=== PATIENT | female | born 1990 | race Caucasian/White ===

== ENCOUNTER 2019-11-09 07:07 | Day surgery (SDC) | payer OTHER ==
[2019-11-05 11:01] VITALS: BMI 29.2
[~2019-11-09 07:07] MED LIST: LACTATED RINGERS 1,000 ML IV SCH; LIDOCAINE 1% 20 ML VIAL (10MG/ML) FOR IV START INTRADERMA PRN
[2019-11-09 07:22] VITALS: TEMP 97.2
[2019-11-09] MEDS ORDERED: PROPOFOL 10 MG/ML 20 ML VIAL IV ONE (07:43)
[2019-11-09] MEDS ORDERED: LIDOCAINE 1% INJ 10MG/ML (20 ML MDV) ONE (07:43)
--- NOTE | 2019-11-09 07:48 | P.GSHP ---
History of Present Illness H&P Date: 11/09/19 Chief Complaint: Dysphagia This a 21-year-old female who presents today for EGD. She's had issues with dysphagia. Past Medical History Additional Past Medical History / Comment(s): "lump in throat". neurocardiogenic syncope. has IUD History of Any Multi-Drug Resistant Organisms: None Reported Past Surgical History: Appendectomy, Cholecystectomy Additional Past Surgical History / Comment(s): septoplasty,exp.lap Past Anesthesia/Blood Transfusion Reactions: Previous Problems w/ Anesthesia Additional Past Anesthesia/Blood Transfusion Reaction / Comment(s): "hard to wake up" Past Psychological History: Anxiety Smoking Status: Never smoker Past Alcohol Use History: Occasional Past Drug Use History: None Reported - Past Family History Mother Family Medical History: No Reported History Medications and Allergies Home Medications Medication Instructions Recorded Confirmed Type Cholecalciferol [Vitamin D3 (25 1,000 unit PO DAILY 11/05/19 11/09/19 History Mcg = 1000 Iu)] Allergies Allergy/AdvReac Type Severity Reaction Status Date / Time tegaderm Allergy skin Uncoded 11/05/19 10:54 irritation Surgical - Exam Vital Signs Temp Pulse Resp BP Pulse Ox 97.2 F L 106 H 20 111/71 99 11/09/19 07:19 11/09/19 07:19 11/09/19 07:19 11/09/19 07:19 11/09/19 07:19 - General well developed, well nourished, no distress - Eyes PERRL - ENT normal pinna - Neck no masses - Respiratory normal expansion - Cardiovascular Rhythm: regular - Abdomen Abdomen: soft, non tender Assessment and Plan Assessment: Dysphagia. We'll perform EGD.
--- NOTE | 2019-11-09 07:54 | P.OP ---
Date of Procedure: 11/09/19 Preoperative Diagnosis: Dysphagia Postoperative Diagnosis: Antral gastritis Small hiatal hernia Mild esophagitis Procedure(s) Performed: EGD Anesthesia: MAC Surgeon: Kan Brown Pathology: other (Antrum, esophagus) Condition: stable Disposition: PACU Description of Procedure: The patient's placed on the endoscopy table in the lateral position. She received IV sedation. The gastroscope was oropharynx and passed in the esophagus and stomach. Scope then placed through the first. The first and s econd portion of the duodenum appeared normal. Scope was then brought back the antrum and this appeared mildly inflamed. A biopsies performed. Scope was retroflexed and the remainder stomach appeared normal. There was a small hiatal hernia seen. The GE junction was at 38 cm. The distal esophagus inflamed. The proximal esophagus appeared normal. Scope was withdrawn for patient.
[2019-11-09 07:59] VITALS: RESP 16
[2019-11-09 08:16] VITALS: BP 103/68; PULSE 74
== END 2019-11-09 08:30 | disposition home or self-care (01) ==
LOC: ORWHC2ENDO 07:07
PROVIDERS: ATTEND Surgery
DX: K29.50 Unspecified chronic gastritis without bleeding (principal); K20.0 Eosinophilic esophagitis; K44.9 Diaphragmatic hernia without obstruction or gangrene; F41.9 Anxiety disorder, unspecified; R55 Syncope and collapse; Z97.5 Presence of (intrauterine) contraceptive device; Z90.49 Acquired absence of other specified parts of digestive tract; Z88.8 Allergy status to other drugs, medicaments and biological substances; Z98.890 Other specified postprocedural states
CPT/HCPCS: 81025; 88305; 43239; J2001; J2704

== ENCOUNTER → 2019-11-30 | Outpatient (CLI) | payer OTHER ==
[2019-11-30 11:49] LABS: Basophils # (A) 0.1 k/uL (0-0.2); Basophils % (A) 1 %; Eosinophils # (A) 0.1 k/uL (0-0.7); Eosinophils % (A) 2 %; HCT 41.7 % (34.0-46.0); HGB 13.7 gm/dL (11.4-16.0); Lymphocytes # (A) 1.7 k/uL (1.0-4.8); Lymphocytes % (A) 34 %; MCH 30.3 pg (25.0-35.0); MCHC 32.8 g/dL (31.0-37.0); MCV 92.5 fL (80.0-100.0); Mean Platelet Volume 8.2; Monocytes # (A) 0.2 k/uL (0-1.0); Monocytes % (A) 4 %; Neutrophils # (A) 2.9 k/uL (1.3-7.7); Neutrophils % (A) 57 %; Platelet Count 260 k/uL (150-450); RBC 4.51 m/uL (3.80-5.40); RDW 11.9 % (11.5-15.5); WBC 5.1 k/uL (3.8-10.6)
== END | disposition home or self-care (01) ==
LOC: LABPAT 10:16
PROVIDERS: ATTEND Surgery
DX: Z01.812 Encounter for preprocedural laboratory examination (principal); K21.0 Gastro-esophageal reflux disease with esophagitis; D64.9 Anemia, unspecified; F17.200 Nicotine dependence, unspecified, uncomplicated
CPT/HCPCS: 36415; 85025; 93005

== ENCOUNTER 2019-12-02 07:32 | Observation (INO) | payer OTHER ==
[2019-11-27 11:30] VITALS: BMI 30.2
[~2019-12-02 07:32] MED LIST changes: +CLINDAMYCIN 900 MG in DEXTROSE 5% IN WATER 50 ML IVPB ONE; +DEXAMETHASONE SOD PHOSPHATE 10 MG/ML 1 ML VIAL IV ONE; -LACTATED RINGERS 1,000 ML IV SCH; +MIDAZOLAM 2 MG/2 ML VIAL IV PRN; +ONDANSETRON 4 MG/2 ML VIAL IVP ONE; +fentaNYL (PF) 50 MCG/ML 2 ML AMP IVP PRN
[2019-12-02] MEDS: LACTATED RINGERS 1,000 ML IV SCH (08:18)
[2019-12-02] MEDS: HEPARIN SODIUM,PORCINE 5,000 UNIT/ML 1 ML VIAL SQ ONE ×2 (08:29→14:49)
--- NOTE | 2019-12-02 10:59 | P.GSHP ---
History of Present Illness H&P Date: 12/02/19 Chief Complaint: GERD This a 21-year-old female who presents today for laparoscopic Janay fundoplication.The patient has had long-standing problems with reflux esophagitis. The patient underwent recent EGD is found have evidence of esophagitis. Patient has been well informed on the procedure of laparoscopic Janay fundoplication. The patient is aware the risk of the conversion to the open procedure, risk of injury to the stomach, liver and spleen. The patient is also a risk of recurrent GERD and dysphagia symptoms. The patient understands there is a postoperative diet of full liquids for 2 weeks after surgery. Past Medical History Past Medical History: GERD/Reflux Additional Past Medical History / Comment(s): migraines, neurocardiogenic syncope, has IUD, hiatal hernia, History of Any Multi-Drug Resistant Organisms: None Reported Past Surgical History: Appendectomy, Cholecystectomy, Tonsillectomy Additional Past Surgical History / Comment(s): septoplasty for fx nose, exp.laparoscopy, EGD, colonoscopy Past Anesthesia/Blood Transfusion Reactions: Previous Problems w/ Anesthesia Additional Past Anesthesia/Blood Transfusion Reaction / Comment(s): "hard to wake up" Smoking Status: Never smoker - Past Family History Mother Family Medical History: No Reported History Medications and Allergies Home Medications Medication Instructions Recorded Confirmed Type Cholecalciferol [Vitamin D3 (25 1,000 unit PO DAILY 11/05/19 12/02/19 History Mcg = 1000 Iu)] Allergies Allergy/AdvReac Type Severity Reaction Status Date / Time tegaderm Allergy skin Uncoded 12/02/19 07:56 irritation Surgical - Exam Vital Signs Temp Pulse Resp BP Pulse Ox 97.6 F 83 16 109/64 98 12/02/19 08:09 12/02/19 08:09 12/02/19 08:09 12/02/19 08:09 12/02/19 08:09 - General well developed, well nourished, no distress - Eyes PERRL - ENT normal pinna - Neck no masses - Respiratory normal expansion - Cardiovascular Rhythm: regular - Abdomen Abdomen: soft, non tender Assessment and Plan Assessment: GERD. We'll perform laparoscopic Janay fundal plication.
[2019-12-02] MEDS ORDERED: MIDAZOLAM 2 MG/2 ML VIAL ONE (11:09)
[2019-12-02] MEDS ORDERED: LIDOCAINE 1% INJ 10MG/ML (20 ML MDV) ONE (11:09)
[2019-12-02] MEDS ORDERED: NEOSTIGMINE 1 MG/ML 10 ML VIAL ONE (11:09)
[2019-12-02] MEDS ORDERED: SUCCINYLCHOLINE CHLORIDE 100 MG/5 ML SYR IV ONE (11:09)
[2019-12-02] MEDS ORDERED: KETOROLAC 30 MG/ML 1 ML VIAL ONE (11:09)
[2019-12-02] MEDS ORDERED: fentaNYL (PF) 50 MCG/ML 2 ML AMP ONE (11:09)
[2019-12-02] MEDS ORDERED: ROCURONIUM BROMIDE 10 MG/ML 5 ML VIAL IV ONE (11:09)
[2019-12-02] MEDS ORDERED: PROPOFOL 10 MG/ML 20 ML VIAL IV ONE (11:09)
[2019-12-02] MEDS ORDERED: GLYCOPYRROLATE 0.2 MG/ML 2 ML VIAL ONE (11:09)
[2019-12-02] MEDS ORDERED: BUPIVACAINE (PF) 0.25% 30 ML VIAL SQ ONE (11:43)
[2019-12-02] MEDS ORDERED: LACTATED RINGERS 1,000 ML IV ONE ×3 (12:03→13:23)
--- NOTE | 2019-12-02 12:06 | P.OP ---
Date of Procedure: 12/02/19 Preoperative Diagnosis: GERD Postoperative Diagnosis: GERD Procedure(s) Performed: Laparoscopic Janay fundal plication Anesthesia: HAZEL Surgeon: Kan Brown Estimated Blood Loss (ml): 5 Pathology: none sent Condition: stable Disposition: PACU Description of Procedure: HThe patient was placed on the operating table in the supine position. The patient received general anesthesia. And was placed in dorsal lithotomy position. The patient was prepped and draped in the usual sterile fashion. The skin incision sites were anesthetized with 1% local Xylocaine. The skin was incised in the left periumbilical area and then using a blade less 5 mm trocar under direct visualization panel cavity was entered. After adequate insufflation the laparoscope was then placed into the peritoneal cavity. Next a 5 mm trochars placed in the right epigastric position. Another 5 millimeter trocar the right lateral position. Another 5 millimeter trocar in the left lateral position a 5 mm trocar is placed in the left epigastric position. And then the initial 5 mm trocar was exchanged for a 10 mm trocar. The left lateral lobe liver was retracted. The hernia was seen. The crural defect was then dissected using the Harmonic scissors device. A 360 crural dissection was performed the esophagus stomach was reduced back into the peritoneal Cavity. The crural defect was then closed using 2-0 Ethibond suture. Next the fundus of the stomach was mobilized using the [place] scissors device. and then a 58- [place] bougie dilator was placed oropharynx passed into the esophagus and stomach the fundal plication wrap was then performed by grasping the fundus post eriorly and bringing it around the esophagus and stomach fundoplication was then performed using 2-0 Ethibond suture. Care was taken that the fundal location rested over top of the intra-abdominal esophagus. There was no injury seen to the stomach or esophagus. The dilator was then withdrawn. The abdomen was irrigated there is no bleeding seen. The trochars were then withdrawn and then skin incision sites were closed using 3-0 Monocryl suture Steri-Strips are applied. Patient thought procedure well and sent to recovery room in stable condition.
[2019-12-02] MEDS: HYDROmorphone 0.5 MG/0.5 ML SYRINGE IVP PRN ×4 (12:30→13:35)
[2019-12-02] MEDS: ONDANSETRON 4 MG/2 ML VIAL IVP PRN (16:38)
--- NOTE | 2019-12-02 17:21 | FL ---
EXAMINATION TYPE: FL esophagus cervic/pharynx DATE OF EXAM: 12/02/2019 HISTORY: s/p Janay fundoplication COMPARISON: NONE TECHNIQUE: A single contrast esophagram is performed utilizing Isovue 370 orally. FINDINGS: 21 Seconds of fluoro time 2 images obtained Limited exam performed to evaluate at the gastroesophageal junction. There is no obstruction to flow. No evident leak. Postprocedural changes are noted. IMPRESSION: No evident complication status post fundoplication.
[2019-12-02] MEDS: D5-0.45% NACL WITH KCL 20MEQ/L 1,000 ML IV SCH ×2 (19:22→22:54)
[2019-12-02] MEDS: HYDROmorphone 1 MG/ML 1 ML SYRINGE IVP PRN (19:34)
[2019-12-02] MEDS: FAMOTIDINE 20 MG/2 ML VIAL IV SCH (21:14)
[2019-12-03] MEDS: ONDANSETRON 4 MG/2 ML VIAL IVP PRN ×2 (00:47→07:36)
[2019-12-03] MEDS: HYDROmorphone 1 MG/ML 1 ML SYRINGE IVP PRN ×2 (00:50→07:34)
[2019-12-03] MEDS: D5-0.45% NACL WITH KCL 20MEQ/L 1,000 ML IV SCH (02:20)
[2019-12-03] MEDS: LACTATED RINGERS 1,000 ML IV SCH (05:47)
[2019-12-03] MEDS: FAMOTIDINE 20 MG/2 ML VIAL IV SCH (07:33)
[2019-12-03] MEDS ORDERED: HYDROcodone/APAP 5-325MG 1 EACH TAB PO PRN (07:58)
[2019-12-03 08:09] VITALS: BP 113/78; PULSE 87; RESP 16; TEMP 98.1
[2019-12-03] MEDS ORDERED: ENOXAPARIN 40 MG/0.4 ML SYRINGE SQ SCH (09:00)
--- NOTE | 2019-12-03 15:09 | P.DS ---
Providers Date of admission: 12/02/19 22:10 Expected date of discharge: 12/03/19 Attending physician: Kan Brown Primary care physician: Ovi Curiel [facility] Course: 29-year-old female who underwent laparoscopic Janay fundoplication secondary to GERD. Postoperative esophagram completed negative for leak or obstruction. Patient is doing well postoperatively without any immediate complications. Patient is tolerating clear liquid diet. Pain is controlled on oral medications. Vital signs are stable. She is stable for discharge home today. Please see EMR for further hospital course details. Discharge Diagnosis 1. GERD, status post laparoscopic Janay fundoplication Nurse practitioner note has been reviewed by physician. Signing provider agrees with the documented findings, assessment, and plan of care. Plan - Discharge Summary Discharge Rx Participant: No New Discharge Prescriptions: New Hydrocodone/Acetaminophen [Bath 5-325] 1 tab PO Q6HR PRN #10 tab PRN Reason: Pain No Action Cholecalciferol [Vitamin D3 (25 Mcg = 1000 Iu)] 1,000 unit PO DAILY Discharge Medication List Cholecalciferol [Vitamin D3 (25 Mcg = 1000 Iu)] 1,000 unit PO DAILY 11/05/19 [History] Hydrocodone/Acetaminophen [Bath 5-325] 1 tab PO Q6HR PRN #10 tab 12/03/19 [Rx] Follow up Appointment(s)/Referral(s): Ovi Curiel DO [Primary Care Provider] - 12/07/19 11:30 am Kan Brown MD [STAFF PHYSICIAN] - 12/17/19 1:30 pm Patient Instructions/Handouts: *Surgery [facility] - ([facility]) Lap Janay Fundiplication Post-Op Instructions Activity/Diet/Wound Care/Special Instructions: No driving while taking Bath No lifting over 10 pounds You may shower. No soaking or tub baths Very light activity until you are reevaluated at your follow up appointment with your surgeon Full liquid/soft diet for 2 weeks No straws or carbonated beverages Discharge Disposition: HOME WITH HOSPICE
== END 2019-12-03 11:51 | disposition hospice, home (50) ==
LOC: OR 07:32 → 4SSUR 14:29 → OR 22:51
PROVIDERS: ADMIT Surgery; ATTEND Surgery
DX: K21.0 Gastro-esophageal reflux disease with esophagitis (principal); K44.9 Diaphragmatic hernia without obstruction or gangrene; G43.909 Migraine, unspecified, not intractable, without status migrainosus; Z97.5 Presence of (intrauterine) contraceptive device; Z90.49 Acquired absence of other specified parts of digestive tract; Z90.89 Acquired absence of other organs; Z98.890 Other specified postprocedural states; Z91.048 Other nonmedicinal substance allergy status
CPT/HCPCS: 43280; 81025; 86900; 86901; 86850; 74210; G0378 ×2; J2250; J1100; J2710; J2405 ×2; J2001; J3010; J1885; J1170 ×3; J0330; J2704; Q9967; 93005

== ENCOUNTER 2022-02-07 11:36 | Emergency (ER) | payer OTHER ==
[2022-02-07 12:03] VITALS: RESP 18; TEMP 97.8
--- NOTE | 2022-02-07 12:33 | ED ---
General Adult HPI - General Chief complaint: Chest Pain Stated complaint: Chest pain Time Seen by Provider: 02/07/22 12:11 Source: patient Mode of arrival: wheelchair Limitations: no limitations - History of Present Illness Initial comments: Dictation was produced using [employer] dictation software. please excuse any grammatical, word or spelling errors. Chief Complaint: 31-year-old female presents to the emergency department for chief complaint of 48 hours of fatigue and chest pain History of Present Illness: Patient is a 31-year-old female she has no significant past medical history. Over the last 48 hours she has been feeling fatigued. Today she developed chest discomfort. She refuses to call it pain. States substernal and like an ache that rates to the back. Denies any numbness or paresthesias to the arms or leg. She however feels tingling to her bilateral arms and lower extremities episodically. Denies any extremity weakness. Patient has any cardiac history. Patient states pain is nonradiating. No associated diaphoresis or nausea. Patient is currently trying to get . She had her IUD removed. She just had her period. It has any cough. Pain is sometimes worse with deep inspiration. Patient denies any history of blood clot. She denies shortness of breath. The ROS documented in this emergency department record has been reviewed and confirmed by me. Those systems with pertinent positive or negative responses have been documented in the HPI. All other systems are other negative and/or noncontributory. PHYSICAL EXAM: General Impression: Alert and oriented x3, not in acute distress HEENT: Normocephalic atraumatic, extra-ocular movements intact, pupils equal and reactive to light bilaterally, mucous membranes moist. Cardiovascular: Heart regular rate and rhythm Chest: Able to complete full sentences, no retractions, no tachypnea Abdomen: abdomen soft, non-tender, non-distended, no organomegaly Musculoskeletal: Pulses present and equal in all extremities, no peripheral edema Motor: no focal deficits noted Neurological: CN II-XII grossly intact, no focal motor or sensory deficits noted Skin: Intact with no visualized rashes Psych: Normal affect and mood ED course: 31-year-old well-appearing female presents emergency department for chief complaint of malaise and chest pain. Her chest pain is atypical with typical features. She doesn't have any strong risk factors. Signs upon arrival are within acceptable limits. Evaluation obtained. CBC, metabolic panel is unremarkable. D-dimer is negative. Troponins negative. Urine hCG is negative. 4 panel viral PCR is neg ative. Chest x-ray is nonacute. Patient observed in emergency department for approximately 3 hours and 30 minutes. Patient was notified of all her results. Recommended to her to have a second troponin drawn 3 hours after the first however she declined and would prefer to follow-up with her primary care doctor. Patient's symptoms are very unlikely to be acute coronary syndrome given her age and risk factors. Nonetheless patient was given return precautions. EKG interpretation: Ventricular rate 73, sinus rhythm, TN interval 134, Q's 82, QTC 422. No TN prolongation, no QTC prolongation, no ST or T-wave changes noted. . Overall, this EKG is unremarkable - Related Data Home Medications Medication Instructions Recorded Confirmed No Known Home Medications 02/07/22 02/07/22 Allergies Allergy/AdvReac Type Severity Reaction Status Date / Time tegaderm AdvReac skin Uncoded 02/07/22 14:02 irritation Review of Systems ROS Statement: Those systems with pertinent positive or pertinent negative responses have been documented in the HPI. ROS Other: All systems not noted in ROS Statement are negative. Past Medical History Past Medical History: GERD/Reflux Additional Past Medical History / Comment(s): migraines, neurocardiogenic syncope, has IUD, hiatal hernia, History of Any Multi-Drug Resistant Organisms: None Reported Past Surgical History: Appendectomy, Cholecystectomy, Tonsillectomy Additional Past Surgical History / Comment(s): septoplasty for fx nose, exp.laparoscopy, EGD, colonoscopy Past Anesthesia/Blood Transfusion Reactions: Previous Problems w/ Anesthesia Additional Past Anesthesia/Blood Transfusion Reaction / Comment(s): "hard to wake up" Past Psychological History: Anxiety Smoking Status: Never smoker Past Alcohol Use History: Occasional Past Drug Use History: Marijuana - Past Family History Mother Family Medical History: No Reported History General Exam Limitations: no limitations Course Vital Signs 02/07/22 02/07/22 02/07/22 12:00 12:30 13:35 Temperature 97.8 F Pulse Rate 80 74 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] Respiratory 18 18 Rate Blood Pressure 138/80 117/77 O2 Sat by Pulse 99 100 Oximetry 02/07/22 14:43 Temperature Pulse Rate 78 Pulse Rate [ Sitting Civil Transportation Engineer] Respiratory 18 Rate Blood Pressure 116/72 O2 Sat by Pulse 100 Oximetry Medical Decision Making - Lab Data Result diagrams: 02/07/22 13:01 02/07/22 13:01 Lab Results 02/07/22 02/07/22 02/07/22 Range/Units 12:25 13:01 13:01 WBC 8.2 (3.8-10.6) k/uL RBC 4.76 (3.80-5.40) m/uL Hgb 14.3 (11.4-16.0) gm/dL Hct 44.2 (34.0-46.0) % MCV 92.9 (80.0-100.0) fL MCH 30.0 (25.0-35.0) pg MCHC 32.2 (31.0-37.0) g/dL RDW 11.7 (11.5-15.5) % Plt Count 345 (150-450) k/uL MPV 7.6 Neutrophils % 70 % Lymphocytes % 22 % Monocytes % 4 % Eosinophils % 2 % Basophils % 1 % Neutrophils # 5.8 (1.3-7.7) k/uL Lymphocytes # 1.8 (1.0-4.8) k/uL Monocytes # 0.3 (0-1.0) k/uL Eosinophils # 0.2 (0-0.7) k/uL Basophils # 0.1 (0-0.2) k/uL PT 10.4 (9.0-12.0) sec INR 0.9 (<1.2) APTT 24.8 (22.0-30.0) sec D-Dimer 0.22 (<0.60) mg/L FEU Sodium (137-145) mmol/L Potassium (3.5-5.1) mmol/L Chloride (98-107) mmol/L Carbon Dioxide (22-30) mmol/L Anion Gap mmol/L BUN (7-17) mg/dL Creatinine (0.52-1.04) mg/dL Est GFR (CKD-EPI)AfAm (>60 ml/min/1.73 sqM) Est GFR (CKD-EPI)NonAf (>60 ml/min/1.73 sqM) Glucose (74-99) mg/dL Calcium (8.4-10.2) mg/dL Troponin I (0.000-0.034) ng/mL Urine HCG, Qual Not Detected (Not Detectd) Influenza Type A (PCR) (Not Detectd) Influenza Type B (PCR) (Not Detectd) RSV (PCR) (Not Detectd) SARS-CoV-2 (PCR) (Not Detectd) 02/07/22 02/07/22 02/07/22 Range/Units 13:01 13:01 13:01 WBC (3.8-10.6) k/uL RBC (3.80-5.40) m/uL Hgb (11.4-16.0) gm/dL Hct (34.0-46.0) % MCV (80.0-100.0) fL MCH (25.0-35.0) pg MCHC (31.0-37.0) g/dL RDW (11.5-15.5) % Plt Count (150-450) k/uL MPV Neutrophils % % Lymphocytes % % Monocytes % % Eosinophils % % Basophils % % Neutrophils # (1.3-7.7) k/uL Lymphocytes # (1.0-4.8) k/uL Monocytes # (0-1.0) k/uL Eosinophils # (0-0.7) k/uL Basophils # (0-0.2) k/uL PT (9.0-12.0) sec INR (<1.2) APTT (22.0-30.0) sec D-Dimer (<0.60) mg/L FEU Sodium 137 (137-145) mmol/L Potassium 4.0 (3.5-5.1) mmol/L Chloride 103 (98-107) mmol/L Carbon Dioxide 27 (22-30) mmol/L Anion Gap 7 mmol/L BUN 9 (7-17) mg/dL Creatinine 0.74 (0.52-1.04) mg/dL Est GFR (CKD-EPI)AfAm >90 (>60 ml/min/1.73 sqM) Est GFR (CKD-EPI)NonAf >90 (>60 ml/min/1.73 sqM) Glucose 92 (74-99) mg/dL Calcium 9.6 (8.4-10.2) mg/dL Troponin I <0.012 (0.000-0.034) ng/mL Urine HCG, Qual (Not Detectd) Influenza Type A (PCR) Not Detected (Not Detectd) Influenza Type B (PCR) Not Detected (Not Detectd) RSV (PCR) Not Detected (Not Detectd) SARS-CoV-2 (PCR) Not Detected (Not Detectd) Disposition Clinical Impression: Chest pain Disposition: HOME SELF-CARE Condition: Fair Instructions (If sedation given, give patient instructions): Chest Pain (ED) Additional Instructions: Please seek immediate medical attention if you have any worsening chest symptoms. Especially if it involves chest pressure with associated diaphoresis, nausea and radiation down the extremity. Is patient prescribed a controlled substance at d/c from ED?: No Referrals: Ovi Curiel DO [Primary Care Provider] - 1-2 days Time of Disposition: 15:10
[2022-02-07 13:13] LABS: Basophils # (A) 0.1 k/uL (0-0.2); Basophils % (A) 1 %; Eosinophils # (A) 0.2 k/uL (0-0.7); Eosinophils % (A) 2 %; HCT 44.2 % (34.0-46.0); HGB 14.3 gm/dL (11.4-16.0); Lymphocytes # (A) 1.8 k/uL (1.0-4.8); Lymphocytes % (A) 22 %; MCHC 32.2 g/dL (31.0-37.0); MCV 92.9 fL (80.0-100.0); Mean Platelet Volume 7.6; Monocytes # (A) 0.3 k/uL (0-1.0); Monocytes % (A) 4 %; Neutrophils # (A) 5.8 k/uL (1.3-7.7); Neutrophils % (A) 70 %; Platelet Count 345 k/uL (150-450); RBC 4.76 m/uL (3.80-5.40); RDW 11.7 % (11.5-15.5); WBC 8.2 k/uL (3.8-10.6)
[2022-02-07 13:20] LABS: African American GFR (CKD) >90 (>60 ml/min/1.73 sqM); Anion Gap 7 mmol/L; Blood Urea Nitrogen 9 mg/dL (7-17); Calcium 9.6 mg/dL (8.4-10.2); Carbon Dioxide 27 mmol/L (22-30); Chloride 103 mmol/L (98-107); Glucose 92 mg/dL (74-99); Non-African American GFR(CKD) >90 (>60 ml/min/1.73 sqM); Sodium 137 mmol/L (137-145)
--- NOTE | 2022-02-07 13:23 | XR ---
EXAMINATION TYPE: XR chest 2V DATE OF EXAM: 02/07/2022 COMPARISON: NONE HISTORY: Chest pain TECHNIQUE: Frontal and lateral views of the chest are obtained. FINDINGS: There is no focal air space opacity, pleural effusion, or pneumothorax seen. The cardiac silhouette size is within normal limits. There are overlying leads. The osseous structures are intac t. IMPRESSION: No acute cardiopulmonary process.
[2022-02-07 13:27] LABS: INR 0.9 (<1.2); Partial Thromboplastin Time 24.8 sec (22.0-30.0); Prothrombin Time 10.4 sec (9.0-12.0)
[2022-02-07 14:44] VITALS: BP 116/72; PULSE 78
== END 2022-02-07 15:27 | disposition home or self-care (01) ==
LOC: EC 11:36
DX: R07.89 Other chest pain (principal); K21.9 Gastro-esophageal reflux disease without esophagitis; F41.9 Anxiety disorder, unspecified; F12.90 Cannabis use, unspecified, uncomplicated; Z90.49 Acquired absence of other specified parts of digestive tract; Z20.822 Contact with and (suspected) exposure to COVID-19
CPT/HCPCS: 36415; 71046; 80048; 81025; 84484; 85025; 85379; 85610; 85730; 87636; 93005; 99285